=== PATIENT | female | born 1980 | race Hispanic/Latino ===

== ENCOUNTER 2019-08-22 05:46 | Inpatient (IN) | payer OTHER, MEDICAID ==
[~2019-08-22] VITALS: Ht 149.9 cm; Wt 105.2 kg
[2019-08-22] VITALS (14 sets, daily range): BP systolic 94–117; BP diastolic 47–73
[2019-08-22] MEDS ORDERED: CALDOLOR 800MG+NS 250ML 250 ML IV PRN (06:15)
[2019-08-22] MEDS ORDERED: CEFAZOLIN SODIUM 1 GM VIAL IVP PRN (06:15)
[2019-08-22] MEDS ORDERED: LACTATED RINGERS 1000ML 1,000 ML IV SCH (06:15)
[2019-08-22 07:06] LABS: HEMATOCRIT 40.4 % (36-48); MEAN CORPUSCULAR HGB CONC 33.7 g/dL (32.0-36.0); PLATELET COUNT (AUTO) 302 K/uL (130-400); RED BLOOD CELL COUNT(AUTO) 4.54 MIL/uL (4.00-5.50); RED CELL DISTRIBUTION WIDTH 14.1 % (11.0-15.5); WHITE BLOOD COUNT (AUTO) 8.6 K/uL (4.8-10.8)
[2019-08-22] MEDS ORDERED: CITRIC ACID/SODIUM CITRATE 30 ML UDCUP ONE (07:46)
[2019-08-22] MEDS ORDERED: DURAMORPH PF1 MG/ML 10ML AMP IV ONE (07:47)
[2019-08-22] MEDS ORDERED: FENTANYL CITRATE PF 50 MCG/1 ML 2ML VIAL ONE (07:48)
[2019-08-22] MEDS ORDERED: PHENYLEPHRINE HCL 10 MG/ML 1ML VIAL IV ONE (07:49)
[2019-08-22 07:57] LABS: RAPID PLASMA REAGIN NONREACTIVE (NONREACTIVE)
[2019-08-22] MEDS ORDERED: CEFAZOLIN SODIUM 1 GM VIAL IVP ONE (08:16)
[2019-08-22] MEDS ORDERED: OXYTOCIN 10 UNIT/1ML 10ML VIAL ONE (08:16)
[2019-08-22] MEDS ORDERED: METOCLOPRAMIDE 10 MG/2 ML VIAL ONE (08:49)
--- NOTE | 2019-08-22 10:10 | NUR ---
REPORT RECEIVED FROM ANIBAL ROMAN AND PATIENT CARE TRANSFERED AT THIS TIME. PATIENT DENIES PAIN OBN ASSESSMENT AND 100CC OF YELLOW URINE DISCARDED ON ADMISSION. PERICARE DONE AND NO VAGINAL BLEEDING NOTED. FUNDUS IS FIRM AT -1. PIV PATENT TO LEFT WRIST WITH 18G. ORIENTED PATIENT TO UNIT AND INSTRUCTIONS GIVENON USE OF IS AND PATIENT WAS ABLE TO GET IT TO 2000. ENCOURAGED TO KEEP USING IT EVERY 2 HOURS X 10 TIMES WHILE AWAKE. FATHER OF BABY AT BEDSIDE DOING SKIN TO SKIN WITH BABY.
--- NOTE | 2019-08-22 11:10 | NUR ---
PATIENT C/O ROOM BEING TOO HOT AND TEMPERATURE ADJUSTED. PATIENT DOING SKIN TO SKIN WITH BABY. THERMAL BLANKET RENOVED.
[2019-08-22] MEDS ORDERED: PNV1TABL75 PO (11:22)
[2019-08-22] MEDS ORDERED: OXYTOCIN-LR 20 UNITS/1000 ML 1,000 ML IV PRN (11:30)
[2019-08-22] MEDS ORDERED: SODIUM CHLORIDE 0.9% 10 ML VIAL IVP PRN (11:30)
[2019-08-22] MEDS ORDERED: PROMETHAZINE HCL 25 MG/ML 1ML AMPULE IM PRN (11:30)
[2019-08-22] MEDS ORDERED: DEXTROSE 5 %-0.45 % NACL 1,000 ML IV PRN (11:30)
[2019-08-22] MEDS ORDERED: MEPERIDINE-PF 75 MG/ML SYG IM PRN (11:30)
[2019-08-22] MEDS: CALDOLOR 800MG+NS 250ML 250 ML IV SCH (17:01)
[2019-08-22] MEDS ORDERED: CALDOLOR 800MG+NS 250ML 250 ML IV SCH (19:30)
[2019-08-23] MEDS: CALDOLOR 800MG+NS 250ML 250 ML IV SCH (01:46)
[2019-08-23 03:19] VITALS: BP 97/59
--- NOTE | 2019-08-23 05:47 | NUR ---
SEBAS CASTELLANO, PT. INST TO CALL FOR ASSIST BEFORE GETTING OUT OF BED; VERBALIZED UNDERSTANDING. CONRAD CARE DONE BY FRANCISCA AND ASSISTED PT TO CHAIR. Addendum: 08/23/19 at 0703 by KERI RICHARDSON RN RN Amended: Links added.
[2019-08-23 07:10] LABS: HEMATOCRIT 38.7 % (36-48); MEAN CORPUSCULAR HEMOGLOBIN 29.3 pg (27.0-33.0); MEAN CORPUSCULAR HGB CONC 32.3 g/dL (32.0-36.0); MEAN CORPUSCULAR VOLUME 90.8 fL (79-99); PLATELET COUNT (AUTO) 257 K/uL (130-400); RED BLOOD CELL COUNT(AUTO) 4.26 MIL/uL (4.00-5.50); RED CELL DISTRIBUTION WIDTH 14.1 % (11.0-15.5); WHITE BLOOD COUNT (AUTO) 12.4 K/uL (4.8-10.8)
[2019-08-23] MEDS ORDERED: ACETAMINOPHEN EXTRA STRENGTH 500 MG TABLET PO PRN (07:15)
[2019-08-23] MEDS ORDERED: BISACODYL 10 MG SUPP.RECT RC PRN (07:15)
[2019-08-23] MEDS ORDERED: ACETAMINOPHEN-CODEINE 300/30MG TAB PO PRN (07:15)
[2019-08-23] MEDS ORDERED: HYDROCODONE/ACETAMINOPHEN 5/325 MG TAB PO PRN (07:15)
[2019-08-23 07:30] VITALS: BP 101/60
[2019-08-23 08:10] LABS: HEPATITIS Bs ANTIGEN SCREEN P Negative (Negative)
[2019-08-23] MEDS: SIMETHICONE 80 MG TAB.CHEW PO PRN ×3 (08:11→17:07)
[2019-08-23] MEDS: IBUPROFEN 600 MG TABLET PO PRN ×2 (08:29→14:35)
[2019-08-23] MEDS ORDERED: DOCUSATE SODIUM 100 MG CAP PO SCH (09:00)
--- NOTE | 2019-08-23 09:00 | NUR ---
DR. BOWLING CALLED AND ORDER GIVEN FOR DISCHARGE AFTER UPDATE ON PATIENT GIVEN. PATIENT IS STABLE AND UP TO CHAIR.
[2019-08-23 11:05] VITALS: BP 111/66
[2019-08-23 16:06] VITALS: BP 112/70
--- NOTE | 2019-08-23 16:15 | NUR ---
PATIENT WAS GIVEN DISCHARGE INSTRUCTIONS AND SCRIPT FOR PAIN MANAGEMENT. PATIENT VERBALIZED UNDERSTANDING INSTRUCTIONS GIVEN.
--- NOTE | 2019-08-23 17:45 | NUR ---
PATIENT WAS TAKEN VIA W/C CARRYING BABY IN ARMS TO FAMILY VEHICLE AND WAS DISCHARGED TO HER SIGNIFICANT OTHER IN STABLE CONDITION. PATIENT DENIES PAIN.
== END 2019-08-23 17:45 | disposition home or self-care (01) | DRG 788 ==
LOC: LDH 05:46 → OBSVTOIN 05:46 → WSH 10:10
PROVIDERS: ADMIT Obstetrics & Gynecology; ATTEND Obstetrics & Gynecology
PROC: 10D00Z1 Extraction of Products of Conception, Low, Open Approach (ICD-10-PCS; principal; 2019-08-22 07:30)
DX: O34.211 Maternal care for low transverse scar from previous cesarean delivery (principal); Z37.0 Single live birth; O32.1XX0 Maternal care for breech presentation, not applicable or unspecified; O34.03 Maternal care for unspecified congenital malformation of uterus, third trimester; Z88.2 Allergy status to sulfonamides; Z88.8 Allergy status to other drugs, medicaments and biological substances; D25.9 Leiomyoma of uterus, unspecified; Q51.3 Bicornate uterus; Z3A.39 39 weeks gestation of pregnancy
CPT/HCPCS: 36415; 59510; 85027; 86592; 86701; 86850; 86900; 86901; 87340; 87390; A4344; G0378; J0690; J1741; J2274; J2370; J2590; J2765; J3010; J7120